=== PATIENT | male | born 1955 | race Caucasian/White ===

== ENCOUNTER 2023-11-21 13:03 | Outpatient (AMB) | payer MEDICARE, MEDICAID, SELFPAY ==
--- NOTE | 2023-11-21 13:15 | MHC.OFFWIV ---
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 not unsure if dog has its vaccinations. Patient Tobacco Use Status: Former Tobacco user Allergies No Known Allergies Allergy (Unverified 11/21/23 13:19) Do you need a note to return to daycare/school/sports/work: No HPI HPI Comments History of Present Illness Details 68 y/o male patient who presents to walk in clinic with c/o Dog Bite left Calf. Reports that the Dog is domesticated and lives in the same Apartment building. Pt not sure about Dog's Vaccination status. PFSH Social History Patient Tobacco Use Status: Former Tobacco user Review of Systems Const All systems reviewed & are unremarkable except as noted in HPI and below Physical Exam Vital Signs: Last Vital Signs Pulse 104 H 11/21/23 13:16 BP 140/80 H 11/21/23 13:16 Pulse Ox 94 11/21/23 13:16 Oxygen Delivery Method Room Air 11/21/23 13:16 Const General: comfortable and no acute distress Orientation/consciousness: patient oriented x3 Skin Trauma: puncture (2 Deep puncture wounds, actively bleeding left lower extremity - Calf) Neuro General: patient oriented x3 Extrem Knee images: 1. 2 Deep puncture wounds, actively bleeding left lower extremity - Calf Assessment & Plan Assessment & Plan (1) Dog bite of lower leg: Code(s): S81.859A - Open bite, unspecified lower leg, initial encounter; W54.0XXA - Bitten by dog, initial encounter Qualifiers: Encounter type: initial encounter Laterality: left Qualified Code(s): S81.852A - Open bite, left lower leg, initial encounter; W54.0XXA - Bitten by dog, initial encounter Plan: - Pt needs stitches, Puncture wounds are deep. - Advised Pt to go to ED for further management - Advised to get Rabies and Tetanus Vaccines. - Pt reports that he will find out from the engraver letter regarding Dog's Vaccination Status. Coding Level of Care Code Est Pt Level 3 (89839) Diagnoses Dog bite of left lower leg, initial encounter S81.852A; W54.0XXA Encounter type: initial encounter Laterality: left Time Spent (min) 10
[2023-11-21 13:16] VITALS: BP 140/80; PULSE 104; O2SAT 94
== END 2023-11-21 16:34 | disposition home or self-care (01) ==
PROVIDERS: PCP Internal Medicine; Visit Provider Nurse Practitioner Family
DX: S81.852A Open bite, left lower leg, initial encounter (principal); W54.0XXA Bitten by dog, initial encounter
CPT/HCPCS: 99213

== ENCOUNTER 2025-01-28 12:30 | Outpatient (AMB) | payer MEDICARE, MEDICAID, SELFPAY ==
--- NOTE | 2025-01-28 12:32 | MHC.OFFWIV ---
Intake Vital Signs 01/28/25 12:35 Height 5 ft 9 in Weight 160 lb BMI 23.6 BP 120/60 Blood Pressure Location Lt brachial Position Sitting Pulse 80 Pulse Source Pulse Oximeter Temp 97.5 F Temp Source Oral Pulse Oximetry (%) 91 L Oxygen Delivery Method Room Air Intake Visit Reasons: EP Cut on arm from ladder/red eyes Patient Tobacco Use Status: Former Tobacco user Allergies No Known Allergies Allergy (Verified 01/28/25 12:32) Do you need a note to return to daycare/school/sports/work: No HPI HPI Comments History of Present Illness Details History of Present Illness - The patient is a 69-year-old male presenting with eye issues. - Redness and itchiness in both eyes started four days ago without blurry vision. - No crusting in the mornings, but discomfort worsened after possible contact with facial cream. -patient also states he has a abrasion on his right forearm that he sustained yesterday morning while using a ladder. He tells me that it it will not stop bleeding. He does take an aspirin daily but is not on any other blood thinners. He cleaned it and applied a Band-Aid but has had a changes several times due to the bleeding. Physical Exam General: Cooperative, healthy appearing, comfortable, no acute distress and well developed Orientation: Patient oriented x3 Limitations: No limitations Head: Normal to inspection Ears: Hearing grossly normal bilaterally Nose: Normal External nose present Face and sinus: Dry skin noted on face Eyes: Conjunctival injection bilaterally, linear abrasion noted starting at 4 o'clock extending to 7 o'clock right eye, 2 small circular ER corneal abrasions observed in the left eye at 03:00 and 07:00, no crusting noted Neck: Normal visual inspection and Yes full ROM Respiratory: Normal respiratory effort and able to speak in complete sentences. Skin: No rashes or lesions noted Neuro: Patient oriented x3 Extremities: Right forearm has a 0.75 cm circular laceration that is currently not bleeding, no ecchymosis no warmth and no surrounding erythema. Normal to inspection otherwise [facility] Social History Patient Tobacco Use Status: Former Tobacco user Review of Systems Const All systems reviewed & are unremarkable except as noted in HPI and below Physical Exam Vital Signs: Last Vital Signs Temp 97.5 F 01/28/25 12:35 Pulse 80 01/28/25 12:35 BP 120/60 01/28/25 12:35 Pulse Ox 91 L 01/28/25 12:35 Oxygen Delivery Method Room Air 01/28/25 12:35 BMI result Body Mass Index 23.6 Office Procedures Fluorescein eye exam Details: Applied 2 drops of tetracaine eyedrops to each eye and then applied dye to each eye and looked under the fluorescein light an observed corneal abrasions. Right eye has a linear corneal abrasion extending from 4:00 to 7:00. Left eye has 2 small circular corneal abrasions at 03:00 and at 07:00 Fluorescein eye exam Details: as above Assessment & Plan Assessment & Plan (1) Abrasion of left cornea: Code(s): S05.02XA - Injury of conjunctiva and corneal abrasion without foreign body, left eye, initial encounter Qualifiers: Encounter type: initial encounter Qualified Code(s): S05.02XA - Injury of conjunctiva and corneal abrasion without foreign body, left eye, initial encounter Plan: We did attempt to have the patient irrigate his eyes but he was unable to tolerate it for very long. Erythromycin ophthalmic ointment will be used to address the corneal abrasions, applied four times daily while the patient is awake. The ointment must be placed in the lower conjunctival sac using a 0.5cm ribbon. This may induce temporary blurred vision, so the patient is cautioned against driving immediately after application. If he has any change in vision or any pain develops, the patient should go to the emergency department for an emergent evaluation. With two tubes prescribed, the patient is assured of sufficient medication. Follow-up already scheduled with the patient's seo team lead on Friday will allow for evaluation of the healing process. Patient was informed and verbally consented to the use of an ambient scribe for clinic note documentation during this visit. (2) Abrasion of right cornea: Code(s): S05.01XA - Injury of conjunctiva and corneal abrasion without foreign body, right eye, initial encounter Qualifiers: Encounter type: initial encounter Qualified Code(s): S05.01XA - Injury of conjunctiva and corneal abrasion without foreign body, right eye, initial encounter Plan: as above (3) Laceration of right forearm: Code(s): S51.811A - Laceration without foreign body of right forearm, initial encounter Qualifiers: Encounter type: initial encounter Qualified Code(s): S51.811A - Laceration without foreign body of right forearm, initial encounter Plan: As it has been 24 hours, too late to suture however it is more of an abrasion than a true laceration and it is currently not bleeding but there is some blood in the wound. I applies a slight pressure dressing and told the patient to remove it when he got home and to apply a regular Band-Aid. He should return if it starts to bleed again. Orders: Orders AMB Fluorescein eye exam Today S05.01XA - Injury of conjunctiva and corneal abrasion without foreign body, right eye, initial encounter, S05.02XA - Injury of conjunctiva and corneal abrasion without foreign body, left eye, initial encounter Medications: New erythromycin Apply to each eye 4 times a day while awake 0.5 inches ophthalmic (eye) QID 7 grams 0RF Coding Level of Care Code New Pt Level 4 (50984) Diagnoses Abrasion of left cornea, initial encounter S05.02XA Encounter type: initial encounter Abrasion of right cornea, initial encounter S05.01XA Encounter type: initial encounter Laceration of right forearm, initial encounter S51.811A Encounter type: initial encounter
[2025-01-28 12:35] VITALS: BP 120/60; PULSE 80; TEMP 36.4; O2SAT 91; BMI 23.6
--- OUTSIDE RECORDS SUMMARY | 2025-01-28 12:56 | XMS_ITS | Data Portability ---
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 He had a colonoscopy which showed a polyp in his caecum and is planning to have a Laparoscopic resection. He is on Suboxone and receives prescription from [facility]. My recommendations are 1. Mr. Enrique will stop Suboxone 5 days prior to surgery and will start Morphine ER 30 mg BID ( total of 10 tablets ) . I have spoken with Dr. Burns, his PCP and he has agreed to prescribe Morphine prior to surgery after a preop discussion with Mr. Enrique . He needs to make a follow up appointment with Dr. Burns prior to surgery. 2. Mr. Enrique will restart Suboxone as soon as he is able to tolerate PO intake. I have discussed the plan with Dr. Hari Alcala at [facility] and he is recommending the same and Mr. Enrique will continue prescriptions at [facility] after the surgery. 3. Regional anesthetic plans are at discretion of the anesthesiology team. On the morning of the surgery , I recommend that Mr. Enrique take a dose of Morphine ER 30mg with a sip of water. 4. Post opertaive pain management of regional techniques is at the discretion of the anesthesiologist and pain team. 5. If surgery is converted to open colon resection, I recommend IV HOGSHEAD WEIGHER morphine at the discretion of acute pain/surgical team with restarting suboxone at previous doses once discharged from the hospital. [email or web address] Not available 09/08/2016 13:12:18 Plan of Treatment Reminders Order Date Submit Date Provider Last Modified By Organization Details Last Modified Time Details Appointments None record ed. Lab None record ed. Referral None record ed. Procedures None record ed. Surgeries None record ed. Imaging None record ed. Medication Orders None record ed. Patient TargetsNo targets recorded. Patient Instructions Encounter Date Encounter Id Patient Instructions Last Modified By Organization Details Last Modified Time 09/04/2016 [id number] The benefits of smoking cessation was discussed with the patient. He was advised to continue with activities as tolerated. [email or web address] Not available 09/08/2016 13:02:03 Reason for Referral None Reported. Procedures Surgical History Date Name Laterality Status Provider Name and Address Organization Details Recorded Time Arthroscopic Surgery completed Mari [facility] 09/04/2016 14:10:12 Imaging Results None recorded. Procedure Notes None recorded. Medical Equipment None Reported. Allergies No known drug allergies Medications Name Sig Start Date Stop Date Status Note LastModified by Organization Details LastModified Time prednisone 10 mg tablet 09/04 completed Not Available Not Available Not Available FreeStyle Lancets 28 gauge TEST BID 09/04 completed Not Available Not Available Not Available prednisone 20 mg tablet TK 2 TS PO QD FOR 5 DAYS 09/04 completed Not Available Not Available Not Available prednisone 5 mg tablet 09/04 completed Not Available Not Available Not Available enalapril 10 mg-hydrochl orothiazide 25 mg tablet TK ONE T PO D active Not Available Not Available No t Available glimepiride 2 mg tablet TK 1 T PO QD 09/04 completed Not Available Not Available Not Available lorazepam 0.5 mg tablet TK 1 T PO Q 6 H PRN FOR FLYING ANXIETY 09/04 completed Not Available Not Available Not Available metformin ER 500 mg tablet,exte nded release 24 hr TK 2 TS PO QD 09/04 completed Not Available Not Available Not Available doxycycline hyclate 100 mg tablet TK 1 T PO BID FOR 10 DAYS 09/04 completed Not Available Not Available Not Available metformin ER 750 mg tablet,exte nded release 24 hr TK 1 T PO BID active Not Available Not Available No t Available ProAir HFA 90 mcg/actuati on aerosol inhaler INHALE 2 PUFFS PO Q 4 H PRN 09/04 completed Not Available Not Available Not Available Symbicort 160 mcg-4.5 mcg/actuati on HFA aerosol inhaler INL 2 PFS PO BID 09/04 completed Not Available Not Available Not Available FreeStyle Lite Strips TEST BID 09/04 completed Not Available Not Available Not Available GaviLyte-G 236 gram-22.74 gram-6.74 gram-5.86 gram oral solution TAKE 8 OUNCES BY MOUTH DIRECTED EVERY 10-15 MINUTES 09/04 completed Not Available Not Available Not Available Suboxone 8 mg-[address] 2 FILMS SUBLINGUA LLY EVERY DAY active Not Available Not Available No t Available Vitals Date Recorded Heart rate Oxygen saturation Oxygen saturation in Arterial blood by Pulse oximetry Body height Body weight Body mass index (BMI) Systolic blood pressure Diastolic blood pressure Provider Name and Address Organization Details Last Updated DateTime 7 87 /min 97 % 97 % 175.26 cm 37824.6 3 g 26.6 kg/m2 152 mm[Hg] 68 mm[Hg] Mari Fuchs MA - [facility] 7 13:57:30 Social History Question Answer Notes LastModified by Visionnaire ion Details LastModified Time Tobacco Smoking Status Current Every Day Smoker Not Available [facility] 06/16/2020 03:16:10 Which Illicit Or Recreational Drugs Have You Used? No [id number] Information not available 06/16/2020 Education 12 [email or web address] Information no t available 09/04/2016 Live Alone Or With Others? With Others [email or web address] Information not available 09/04/2016 Marital Status [email or web address] Informatio n not available 09/04/2016 How Much Tobacco Do You Smoke? 1 PPD [id number] Information not available 06/16/2020 How Many Years Have You Smoked Tobacco? 40 [id number] Information not available 06/16/2020 Sex: Unknown Functional Status Question Answer Note LastModified by Organizat ion Details LastModified Time What is your level of alcohol consumption? Occasional [id number] Information not available 06/16/2020 Are you currently employed? No [id number] Information not available 06/16/2020 Mental Status None recorded. Family History Relationship Description Onset Age of this Age Resolved Age Notes LastModified by Organization Details LastModified Time Father No current problems or disability [email or web address] Not available 09/04 14:08:43 Mother No current problems or disability [email or web address] Not available 09/04 14:08:43 Medical History Condition Response Diabetes Y Arthritis Y Hypertension Y Past Encounters Encounter ID Performer Location Encounter Start Date Encounter Closed Date Diagnosis/Indication Diagnosis SNOMED-CT Code Diagnosis ICD10 Code Diagnosis Note [id number] Don Logn MD PAIN OFFICE [address] [facility],[address] [place] [address] 09/04/2016 13:50:21 09/08/2016 13:13:23 Polyp of colon 41901379 K63.5 Long-term drug therapy 486471393 Z79.899 Health Concerns Section Related Observation LastModified by Organization Detai ls LastModified Time None Recorded Concern Status LastModified by Organization Details LastModified Time None Recorded Advance Directives Directive None Recorded Payers Encounter Date Sequence Insurance Name Policy Number Policy Bey Covered Member ID Bey Member ID Guarantor Name 09/04/2016 1 [place] [facility] Vinh Enrique [id number] Vinh Enrique Notes Date Note Type Note Provider Name and Address Organization Details Recorded Time 09/04/2016 text/html Vinh Enrique i s a 61 year old man who is here for a perioperative pain consult. He had a colonoscopy by Dr. Sow which showed he had a polyp in the cecum at the appendiceal orifice. He has seen Dr. Gregory for a surgical consultation who is recommending a Laparoscopic resection and he may need further surgery based on pathology of the polyp. Mr. Enrique is on Suboxone and has been receiving the Prescription for Suboxone from Dr. Alcala at [facility] in [place], [place]. He states he had prior knee surgery and then started taking percocet for pain control and then started taking more than prescribed. He decided to obtain treatment with Suboxone. Don Long MD [address] , [address], [place], [address], [facility] 09/09/2016 11:10:19
== END 2025-01-28 13:11 | disposition home or self-care (01) ==
PROVIDERS: PCP Internal Medicine; Visit Provider Physician Assistant
DX: S05.02XA Injury of conjunctiva and corneal abrasion without foreign body, left eye, initial encounter (principal); S05.01XA Injury of conjunctiva and corneal abrasion without foreign body, right eye, initial encounter; S51.811A Laceration without foreign body of right forearm, initial encounter

== ENCOUNTER → 2025-01-28 12:30 | Outpatient (BNVA) | payer MEDICARE, MEDICAID, SELFPAY | PROVIDERS: PCP Internal Medicine | DX: S05.02XA Injury of conjunctiva and corneal abrasion without foreign body, left eye, initial encounter (principal); S05.01XA Injury of conjunctiva and corneal abrasion without foreign body, right eye, initial encounter; S51.811A Laceration without foreign body of right forearm, initial encounter | CPT/HCPCS: 99202 ==